=== PATIENT | male | born 1955 | race Caucasian/White ===

== ENCOUNTER → 2016-11-30 | Outpatient (CLI) | payer OTHER ==
[~2016-11-30] MED LIST: ASPI81TA28 PO; FLV1 PO; MULT-506 PO; PB15 PO
[2016-11-30 11:44] LABS: ALT/SGPT 44 U/L (12-78); AST/SGOT 19 U/L (15-37); BLOOD UREA NITROGEN 16 mg/dl (7-18); BUN/CREATININE RATIO 12.9 (10-20); CALCIUM 9.1 mg/dl (8.5-10.1); CARBON DIOXIDE 29 mmol/L (21-32); CHLORIDE 106 mmol/L (98-107); GLUCOSE 88 mg/dl (70-99); SODIUM 142 mmol/L (136-145)
[2016-11-30 11:46] LABS: ALB/GLOB RATIO 1.2 (0.9-2); ALKALINE PHOSPHATASE 74 U/L (45-117); CHOLESTEROL 166 mg/dl (0-200); CHOLESTEROL/HDL RATIO 3.4; HDL CHOLESTEROL 49 mg/dl; LDL CHOLESTEROL CALCULATED 101 mg/dl; TRIGLYCERIDES 81 mg/dl (0-150); VERY LOW DENSITY LIPOPROT CALC 16 mg/dl
== END | disposition home or self-care (01) ==
LOC: C.LAB 09:51
PROVIDERS: ATTEND Nurse Practitioner Family
DX: E78.00 Pure hypercholesterolemia, unspecified (principal)

== ENCOUNTER → 2017-07-08 | Outpatient (CLI) | payer OTHER ==
[2017-07-08 08:49] LABS: ALT/SGPT 49 U/L (12-78); BLOOD UREA NITROGEN 14 mg/dl (7-18); BUN/CREATININE RATIO 12.9 (10-20); CALCIUM 8.6 mg/dl (8.5-10.1); CARBON DIOXIDE 29 mmol/L (21-32); CHLORIDE 108 mmol/L (98-107); CHOLESTEROL 150 mg/dl (0-200); GLUCOSE 91 mg/dl (70-99); SODIUM 142 mmol/L (136-145)
[2017-07-08 08:52] LABS: ALB/GLOB RATIO 1.2 (0.9-2); ALKALINE PHOSPHATASE 67 U/L (45-117); AST/SGOT 24 U/L (15-37); CHOLESTEROL/HDL RATIO 3.3; HDL CHOLESTEROL 45 mg/dl; LDL CHOLESTEROL CALCULATED 95 mg/dl; TRIGLYCERIDES 52 mg/dl (0-150); VERY LOW DENSITY LIPOPROT CALC 10 mg/dl
== END | disposition home or self-care (01) ==
LOC: C.LAB 07:55
PROVIDERS: ATTEND Nurse Practitioner Family
DX: Z00.00 Encounter for general adult medical examination without abnormal findings (principal)

== ENCOUNTER 2025-05-15 10:41 | Inpatient (IN) ==
--- NOTE | 2025-05-15 11:20 | XRay Report ---
XR chest 1V portable CLINICAL HISTORY: Chest pain, nonspecific COMPARISON STUDY: 12/09/2024 FINDINGS: Heart size and pulmonary vasculature are normal. No consolidation or pleural effusion. No p neumothorax. Stable minimal scoliosis. IMPRESSION: No acute findings. ACT 112: Negative or not required by law. Electronically signed by: Jabier Naik M.D. 05/15/2025 11:19 AM
[2025-05-15 11:32] LABS: Hematocrit (blood only) 47.9 % (42.0-52.0); Hemoglobin 16.3 g/dl (14.0-18.0); Immature Granulocytes # (auto) 0.02 K/uL (0.01-0.20); Immature Granulocytes % (auto) 0.3 %; Mean Corpuscular Hemoglobin 30.8 pg (25.0-34.0); Mean Corpuscular Volume 90.5 fL (80.0-100.0); Platelet Count 249 K/uL (130-400); RDW Standard Deviation 42.2 fL (36.4-46.3); Red Blood Count 5.29 M/uL (4.70-6.10); White Blood Count 7.71 K/ul (4.8-10.8)
[2025-05-15 11:51] LABS: Alanine Aminotransferase 25.0 U/L (7-52); Albumin Globulin Ratio 1.5 (0.9-2); Alkaline Phosphatase 57.0 U/L (34-104); Anion Gap 7.0 (3-11); Bilirubin,Total 0.7 mg/dl (0.2-1.0); Blood Urea Nitrogen 17.0 mg/dl (6-23); Calcium 9.3 mg/dl (8.6-10.3); Carbon Dioxide 31.0 mmol/L (21-32); Chloride 101.0 mmol/L (98-107); Creatinine Clr Calc Pharmacy 61.8 ml/min; Globulin 2.8 gm/dl (2.5-4.0); Glucose 97.0 mg/dl (70-99(Fasting)); Lipase 27.0 U/L (11-82); Potassium 4.2 mmol/L (3.5-5.1); Sodium 139.0 mmol/L (136-145); Total Protein 7.1 gm/dl (6.0-8.3)
[2025-05-15] MEDS: ASPIRIN CHEW 324 MG PO STA (12:19)
[2025-05-15] MEDS ORDERED: ACETAMINOPHEN 325 MG TAB PO PRN (12:20)
--- NOTE | 2025-05-15 12:32 | Cardiology Consultation ---
Date of Consultation May 15, 2025 Assessment & Plan (1) Angina pectoris, crescendo: -The patient describes classic, crescendo, exertional angina pectoris. -Troponin elevated at 270. -Would not perform a stress test. -Cardiac catheterization this afternoon, discussed with Dr. Larios. (2) Benign essential hypertension: - Adequate control on current regimen. (3) Pure hypercholesterolemia: - Simvastatin will likely need to be changed to atorvastatin or rosuvastatin. History of Present Illness History of Present Illness Mr. Giraldo is a 61-year-old male who presented to the emergency room today with a chest pain syndrome. This consultation was ordered to assist in his cardiac management. The patient was in his usual state of health until approximately 6 months ago. He began to note substernal chest discomfort with exertion. This has become progressive and now happens with minimal physical activity. There is also associated shortness of breath and occasional diaphoresis. His symptoms resolve within several minutes of rest. He was seen by MAISHA Romano this morning with the above complaints. An EKG noted a poor R wave progression across into precordium, therefore, he was sent to the emergency room for further care. He has not experienced any symptoms at rest. He has never known of a cardiac event. He has never had a cardiac catheterization. A fasting lipid panel performed back in February noted poor control with an LDL cholesterol of 157. He is currently on simvastatin. His medication reviewed in detail. Past medical and surgical history 1. Hypertension 2. Hypercholesterolemia 3. Hypothyroidism 4. Allergic rhinitis 5. 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 Allergies Allergy/AdvReac Type Severity Reaction Status Date / Time losartan AdvReac Intermediate Cough Verified 05/15/25 08:55 Home Medications Medication Instructions Recorded Confirmed Type aspirin 81 mg tablet,delayed 81 mg PO QAM 12/26/22 05/15/25 History release wbwvnbgyvsi-[id number]-mqw C-Mn 500 1 cap PO QAM 12/26/22 05/15/25 History mg-400 mg capsule multivitamin 1 tab PO QAM 12/26/22 05/15/25 History levothyroxine 75 mcg tablet 75 mcg PO DAILY #30 tabs 02/24/25 05/15/25 Rx (Synthroid) simvastatin 10 mg tablet See Rx Instructions .Route 02/24/25 05/15/25 Rx .COMPLEX #90 tabs metoprolol succinate 50 mg 50 mg PO HS #90 tabs 03/19/25 05/15/25 Rx tablet,extended release 24 hr nifedipine 30 mg tablet,extended 30 mg PO DAILY #30 tabs 05/08/25 05/15/25 Rx release 24 hr hydrochlorothiazide 25 mg tablet 25 mg PO BID #180 tabs 05/15/25 05/15/25 Rx Patient History Medical History Colon cancer screening Osteoarthritis Surgical History S/P tendon repair History of colonoscopy Family History Father Diabetes Hyperlipidemia Heart disease Stage 4 chronic kidney disease due to diabetes mellitus Aortic aneurysm Congestive heart disease Mother Cerebral infarction Stroke Other No family history of adverse response to anesthesia Denies family history of Ovarian cancer Prostate cancer Myocardial infarction Breast cancer Colorectal cancer Social History Smoking Status: Never smoker Second Hand Exposure: No; Do You Dip or Chew Tobacco: No; Hx Alcohol Use: No Hx Substance Use: No Preferred Language: Swedish Communication Ability: Effective Visual Impairment: No Limitations Hearing Ability: Normal Speech Writer Required: No Beliefs That Will Affect Care: None marital status: Current Living Situation: Spouse current occupational status: 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 HEENT exam is negative. Neck reveals normal carotid upstrokes without bruits. Jugular venous pressure is flat at 90. There is no thyromegaly. Cardiovascular exam reveals a regular rhythm with a normal S1 and S2. No S3, S4, or murmurs are noted. Lungs are clear without rales, rhonchi, or wheezes. Abdomen is soft without bruits. Extremities reveal intact radial artery and posterior tibial pulses bilaterally. There is no peripheral edema. Results & Data Vital Signs (Past 12 Hours) Vital Signs Temp Pulse Pulse Resp BP BP Pulse Ox 05/15/25 11:38 95 05/15/25 11:38 70 16 131/78 95 05/15/25 11:32 82 05/15/25 10:47 36.7 C 74 18 126/81 96 O2 Del Method O2 Flow Rate 05/15/25 11:38 Room Air 0 05/15/25 11:38 Room Air 0 05/15/25 11:32 05/15/25 10:47 Room Air Diagnostic Findings High-sensitivity troponin elevated at 269.7. CBC and electrolytes are unremarkable. Medications Administered EKG notes sinus rhythm with poor R wave progression across anterior precordium. Chest x-ray shows no acute disease. PG Care Time/CCT Total # of Minutes Spent Total Time Spent with Patient: Total time spent is greater than 50% in coordination of care (as documented) at patient's floor/unit and/or counseling patient: Coding Level of Care Code 91624 INT INP/OBS CARE MIN Diagnoses Angina pectoris, crescendo I20.0 Benign essential hypertension I10 Pure hypercholesterolemia E78.00
--- NOTE | 2025-05-15 12:33 | Pre Anesthesia Assessment ---
Date of Service May 15, 2025 Pre Sedation Assessment Vital Signs Temp Pulse Pulse Resp BP BP Pulse Ox 05/15/25 11:38 95 05/15/25 11:38 70 16 131/78 95 05/15/25 11:32 82 05/15/25 10:47 98.1 F 74 18 126/81 96 O2 Del Method O2 Flow Rate 05/15/25 11:38 Room Air 0 05/15/25 11:38 Room Air 0 05/15/25 11:32 05/15/25 10:47 Room Air Cardiovascular + regular rate Respiratory + respiratory effort normal Pre-Sedation Airway Assessment Smoking Status: Never smoker Hx Sleep Apnea: No Hx Difficult Intubation: No Short, Thick Neck: No Thyromental Distance: > or= 3.5 Finger Breadths Oral Cavity: + Dental Abnormalities Mallampati Class: III ASA: ASA3 Procedure Planning Contraindications for Sedation: none Current Medications Reviewed: Yes Notes The planned sedation has been discussed with the patient. Informed Consent was obtained. I have identified the patient, determined the appropriateness of sedation and have assessed the patient immediately prior to the procedure. All medicine(s) and interventions are by my order.
[2025-05-15] MEDS: niCARdipine 2,000 MCG/20 ML SYR ONE (13:07)
[2025-05-15] MEDS: NITROGLYCERIN/D5W 100MCG/ML 20ML SYR ONE (13:07)
[2025-05-15] MEDS: MIDAZOLAM HCL 1 MG/ML 2ML VIAL ONE (13:32)
[2025-05-15] MEDS: HEPARIN (PORCINE) 1000 UNIT/ML 10 ML (CATH LAB USE ONLY) ONE (13:32)
[2025-05-15] MEDS: OPTIRAY 350 ONE (13:34)
--- NOTE | 2025-05-15 13:50 | Post Anesthesia Assessment ---
Date of Service May 15, 2025 Post Sedation Assessment Vital Signs Temp Pulse Pulse Resp BP BP Pulse Ox 05/15/25 12:45 98.2 F 73 18 138/84 95 05/15/25 12:21 70 16 128/76 99 05/15/25 11:38 95 05/15/25 11:38 70 16 131/78 95 05/15/25 11:32 82 05/15/25 10:47 98.1 F 74 18 126/81 96 O2 Del Method O2 Flow Rate 05/15/25 12:45 Room Air 05/15/25 12:21 Room Air 05/15/25 11:38 Room Air 0 05/15/25 11:38 Room Air 0 05/15/25 11:32 05/15/25 10:47 Room Air Recovery Score Activity: Moves 4 extremities Respiration: Deep Breath/Cough Circulation: +/-20% PreAnes Value Consciousness: Fully Awake Oxygen Saturation: O2 needed for >90% Discharge Sedation Level of Care: Fast Track Phase II Post Sedation Plan tiss
--- NOTE | 2025-05-15 14:23 | Emergency Department Note ---
Impression & Plan Non-ST elevation VT (NSTEMI), Chest pain, exertional, Shortness of breath ED Provider Note NAME: STEFAN LUNDBERG AGE: 69 SEX: M : 1955 ARRIVES VIA: Walk-In INFORMANT: Patient ED PROVIDER(S): Thaddeus Wilson DO CHIEF COMPLAINT: Chest pain HPI: Patient is a 69-year-old male who presents to the ER with a past medical history of hypertension for chest pain which has been coming and going for the past 6 months. Has been worsening in intensity and has associated shortness of breath with it. It only occurs with activity/exertion but has been occurring more frequently and with less exertion. He saw his PCP and they referred him in here for evaluation. Last time he had any chest pain was on Monday. He denies any headache or change in vision. No belly pain. No nausea, vomiting, or diarrhea. No dysuria, urgency, or frequency. No other exacerbating or remitting factors. ADDITIONAL HISTORY OBTAINED: Per HPI Chronic Medical/Social Conditions Affecting Care: Per HPI PAST MEDICAL HISTORY:See Below PAST SURGICAL HISTORY:See Below FAMILY HISTORY:See Below SOCIAL HISTORY:See Below HOME MEDICATIONS:See Below ALLERGIES:See Below VITALS:See Below PHYSICAL EXAMINATION: GENERAL: Sitting up in bed, alert, well appearing, well nourished, no distress, non-toxic EYE EXAM: normal conjunctiva. OROPHARYNX: mucous membranes are moist LUNGS: Clear to auscultation. Normal chest wall mechanics HEART: no murmurs, S1 normal and S2 normal ABDOMEN: abdomen soft, non-tender, normo-active bowel sounds, no masses, no rebound or guarding. UPPER EXTREMITIES: upper extremities are grossly normal. Radial pulses equal bilaterally LOWER EXTREMITIES: No pitting edema. Calves are equal bilaterally NEURO EXAM: Normal sensorium, cranial nerves II-XII grossly intact, normal speech, no gross weakness of arms, no gross weakness of legs. MEDICAL DECISION MAKING: Patient is a 69-year-old male who presents ER for exertional chest pain and shortness of breath with his last episode on Monday which has been getting worse over the past several months. IV was established and blood work was obtained. Labs show no significant leukocytosis or anemia. BMP along with LFTs bilirubin and lipase was unremarkable. Troponin was elevated at about 260. Was given aspirin. He has no pain currently. I discussed the case with Dr. Farnsworth from cardiology and he noted to evaluate the patient at bedside. He recommended no heparin at this time. Patient was updated at bedside and discussed case with the hospitalist for further evaluation management treatment. Consults/Care Managements Discussions: Per [facility] Triage Nursing notes reviewed. Limited review of prior medical records performed Vital Signs: reviewed and remarkable for no significant abnormalities Differential diagnosis: Cardiac ischemia, aortic dissection, pulmonary embolism, pneumothorax, pneumonia, pericarditis, myocarditis, esophageal rupture, GERD, cholecystitis, pancreatitis, musculoskeletal, as well as other pathologies. ER treatment provided: See below Diagnostics interpreted by me include EKG and cardiac monitoring as listed below: -Cardiac Monitoring: An order was placed for continuous cardiac monitoring. The monitor shows a rate of 70 with sinus rhythm. -ECG: Sinus rhythm rate of 69 Normal axis No PVCs T wave inversion in lead III QTc 430 -Laboratory studies:Interpreted by me as stated above in MDM and shown below. Imaging studies: Xrays: As interpreted by me: Portable AP upright 1 view of the chest shows no focal infiltrate CTs show: none Procedures:none Critical Care: None Past Med/Surg History Problem List (Updated 05/15/25 @ 14:23 by Thaddeus Wilson DO) Shortness of breath (Acute) Chest pain, exertional (Acute) Non-ST elevation VT (NSTEMI) (Acute) Angina pectoris, crescendo Hypothyroidism Benign essential hypertension (Chronic) Allergic rhinitis Pure hypercholesterolemia (Acute) Medical History Colon cancer screening Osteoarthritis Surgical History S/P tendon repair History of colonoscopy Family History Father Diabetes Hyperlipidemia Heart disease Stage 4 chronic kidney disease due to diabetes mellitus Aortic aneurysm Congestive heart disease Mother Cerebral infarction Stroke Other No family history of adverse response to anesthesia Denies family history of Ovarian cancer Prostate cancer Myocardial infarction Breast cancer Colorectal cancer Social History Smoking Status: Never smoker Second Hand Exposure: No; Do You Dip or Chew Tobacco: No; Hx Alcohol Use: No Hx Substance Use: No Preferred Language: Turkmen Communication Ability: Effective Visual Impairment: No Limitations Hearing Ability: Normal Custom Seamstress Required: No Beliefs That Will Affect Care: None marital status: Current Living Situation: Spouse current occupational status: retired 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 How many Children do You have: 2 Feels Safe at Home: Yes Childhood Exposure to Second-Hand Smoke: No Diet: regular caffeine: Yes during the past year weight has: remained stable Dental Care, Regularly: Yes Physical Activity Frequency: Does not Exercise Seatbelt Use: always Sunscreen Use: No Assistive Devices: Glasses Allergies Allergies Allergy/AdvReac Type Severity Reaction Status Date / Time losartan AdvReac Intermediate Cough Verified 05/15/25 08:55 Home Meds Home Medications Medication Instructions Recorded Confirmed aspirin 81 mg tablet,delayed 81 mg PO QAM 12/26/22 05/15/25 release utscqipaqwx-ojxwejcen-[id number] C-Mn 500 1 cap PO QAM 12/26/22 05/15/25 mg-400 mg capsule multivitamin 1 tab PO QAM 12/26/22 05/15/25 Previous Rx's Medication Instructions Recorded levothyroxine 75 mcg tablet 75 mcg PO DAILY #30 tabs 02/24/25 (Synthroid) simvastatin 10 mg tablet See Rx Instructions .Route 02/24/25 .COMPLEX #90 tabs metoprolol succinate 50 mg 50 mg PO HS #90 tabs 03/19/25 tablet,extended release 24 hr nifedipine 30 mg tablet,extended 30 mg PO DAILY #30 tabs 05/08/25 release 24 hr hydrochlorothiazide 25 mg tablet 25 mg PO BID #180 tabs 05/15/25 Results & Data (ED) Vital Signs Vital Signs - 24 hr 05/15/25 10:47 05/15/25 11:32 05/15/25 11:38 Temperature 36.7 C Temperature Source Temporal Artery Scan Pulse Rate 74 82 Pulse Rate [Finger] 70 Pulse Rhythm [Finger] Regular Pulse Strength [Finger] Normal Respiratory Rate 18 16 Respiratory Effort / Characteristics Non-Labored Spontaneous Non-Labored Respiratory Depth Normal Normal Respiratory Pattern Regular Blood Pressure 126/81 Blood Pressure [Right Arm] 131/78 Blood Pressure Mean 96 Blood Pressure Mean [Right Arm] 95 Blood Pressure Position Sitting Blood Pressure Position [Right Arm] Pulse Oximetry 96 95 Oxygen Delivery Method Room Air Room Air Oxygen Flow Rate 0 Sepsis Recent Fever Within 48 Hours No Sepsis New/Unexplained Change in Mental Status No Sepsis Action Taken by Nursing No Action Required 05/15/25 11:38 05/15/25 12:21 05/15/25 12:45 Temperature 36.8 C Temperature Source Oral Pulse Rate Pulse Rate [Finger] 70 73 Pulse Rhythm [Finger] Regular Pulse Strength [Finger] Normal Respiratory Rate 16 18 Respiratory Effort / Characteristics Non-Labored Non-Labored Spontaneous Respiratory Depth Normal Normal Respiratory Pattern Regular Regular Blood Pressure Blood Pressure [Right Arm] 128/76 138/84 Blood Pressure Mean Blood Pressure Mean [Right Arm] 93 102 Blood Pressure Position Blood Pressure Position [Right Arm] Pulse Oximetry 95 99 95 Oxygen Delivery Method Room Air Room Air Room Air Oxygen Flow Rate 0 Sepsis Recent Fever Within 48 Hours Sepsis New/Unexplained Change in Mental Status Sepsis Action Taken by Nursing 05/15/25 13:46 05/15/25 14:01 Temperature Temperature Source Pulse Rate Pulse Rate [Finger] 82 84 Pulse Rhythm [Finger] Regular Regular Pulse Strength [Finger] Normal Normal Respiratory Rate 15 15 Respiratory Effort / Characteristics Non-Labored Non-Labored Respiratory Depth Normal Normal Respiratory Pattern Regular Regular Blood Pressure Blood Pressure [Right Arm] 129/84 108/73 Blood Pressure Mean Blood Pressure Mean [Right Arm] 99 84 Blood Pressure Position Blood Pressure Position [Right Arm] Lying Lying Pulse Oximetry 97 97 Oxygen Delivery Method Room Air Room Air Oxygen Flow Rate Sepsis Recent Fever Within 48 Hours Sepsis New/Unexplained Change in Mental Status Sepsis Action Taken by Nursing Laboratory Data 05/15/25 11:06 05/15/25 11:06 Lab Results 05/15/25 Range/Units 11:06 WBC 7.71 (4.8-10.8) K/ul RBC 5.29 (4.70-6.10) M/uL Hgb 16.3 (14.0-18.0) g/dl Hct 47.9 (42.0-52.0) % MCV 90.5 (80.0-100.0) fL MCH 30.8 (25.0-34.0) pg MCHC 34.0 (32.0-36.0) g/dL RDW Std Deviation 42.2 (36.4-46.3) fL RDW Coeff of Atif 12.8 (11.5-14.5) % Plt Count 249 (130-400) K/uL MPV 10.5 (9.4-12.4) fL Immature Gran % (Auto) 0.3 % Neut % (Auto) 63.0 % Lymph % (Auto) 26.1 % Taylor % (Auto) 7.9 % Eos % (Auto) 2.3 % Baso % (Auto) 0.4 % Neut # (Auto) 4.86 (1.40-6.50) K/uL Lymph # (Auto) 2.01 (1.20-3.40) K/uL Taylor # (Auto) 0.61 H (0.11-0.59) K/uL Eos # (Auto) 0.18 (0.00-0.50) K/uL Baso # (Auto) 0.03 (0.00-0.20) K/uL Immature Gran # (Auto) 0.02 (0.01-0.20) K/uL Sodium 139 (136-145) mmol/L Potassium 4.2 (3.5-5.1) mmol/L Chloride 101 (98-107) mmol/L Carbon Dioxide 31 (21-32) mmol/L Anion Gap 7 (3-11) BUN 17 (6-23) mg/dl Creatinine 1.18 (0.6-1.4) mg/dl Est Cr Clr Drug Dosing 61.8 ml/min eGFR 67.21 BUN/Creatinine Ratio 14.4 (10-20) Glucose 97 (70-99(Fasting)) mg/dl Calcium 9.3 (8.6-10.3) mg/dl Total Bilirubin 0.7 (0.2-1.0) mg/dl AST 25 (13-39) U/L ALT 25 (7-52) U/L Alkaline Phosphatase 57 (34-104) U/L Troponin I High Sens 269.7 H* (0-20) pg/ml Total Protein 7.1 (6.0-8.3) gm/dl Albumin 4.3 (3.4-5.0) gm/dl Globulin 2.8 (2.5-4.0) gm/dl Albumin/Globulin Ratio 1.5 (0.9-2) Lipase 27 (11-82) U/L Administered Medications Discontinued Medications Aspirin (Aspirin Chew 324 Mg) 324 mg PO NOW STA Stop: 05/15/25 12:06 Last Admin: 05/15/25 12:19 Dose: 324 mg Documented By: AZALEA Fentanyl Citrate (Fentanyl Citrate Pf 100 Mcg/2 Ml Vial) Confirm Administered Dose 100 mcg .ROUTE .STK-MED ONE Stop: 05/15/25 12:57 Last Increment: 05/15/25 13:32 Dose: 50 mcg Documented By: AGUSTIN Heparin Sodium (Porcine) (Heparin (Porcine) 1000 Unit/Ml 10 Ml (Cap Jewel Plate Assembler Use Only)) Confirm Administered Dose 10,000 units .ROUTE .STK-MED ONE Stop: 05/15/25 12:57 Last Admin: 05/15/25 13:32 Dose: 5,000 units Documented By: AGUSTIN Heparin Sodium/Sodium Chloride (Heparin In Nss Infusion 1000 Unit/500 Ml (2 U/Ml) Bag) Confirm Administered Dose 3,000 units IV .STK-MED ONE Stop: 05/15/25 12:57 Last Admin: 05/15/25 13:07 Dose: 3,000 units Documented By: AGUSTIN Ioversol (Optiray 350) Confirm Administered Dose 1 ml .ROUTE .STK-MED ONE Stop: 05/15/25 12:57 Last Admin: 05/15/25 13:34 Dose: 45 ml Documented By: AGUSTIN Midazolam HCl (Midazolam Hcl 1 Mg/Ml 2ml Vial) Confirm Administered Dose 2 mg .ROUTE .STK-MED ONE Stop: 05/15/25 12:56 Last Increment: 05/15/25 13:32 Dose: 1 mg Documented By: AGUSTIN Nicardipine HCl (Nicardipine 2,000 Mcg/20 Ml Syr) Confirm Administered Dose 2,000 mcg .ROUTE .STK-MED ONE Stop: 05/15/25 12:57 Last Admin: 05/15/25 13:07 Dose: 2,000 mcg Documented By: AGUSTIN Nitroglycerin/Dextrose (Nitroglycerin/D5w 100mcg/Ml 20ml Syr) Confirm Administered Dose 2,000 mcg .ROUTE .STK-MED ONE Stop: 05/15/25 12:57 Last Admin: 05/15/25 13:07 Dose: 2,000 mcg Documented By: AGUSTIN Imaging Data Radiologist's Impression: Chest X-Ray 05/15/25 10:52 XR chest 1V portable CLINICAL HISTORY: Chest pain, nonspecific COMPARISON STUDY: 12/09/2024 FINDINGS: Heart size and pulmonary vasculature are normal. No consolidation or pleural effusion. No pneumothorax. Stable minimal scoliosis. IMPRESSION: No acute findings. ACT 112: Negative or not required by law. Electronically signed by: Jabier Naik M.D. 05/15/2025 11:19 AM Discharge Plan Visit Data Chief Complaint: Abnormal Labs/Diagnostic Testing Stated Complaint: REF BY DOC, ABNORMAL EKG ED Provider: Thaddeus Wilson Discharge Problem: Non-ST elevation VT (NSTEMI), Chest pain, exertional, Shortness of breath Patient Disposition: Admitted As Inpatient Condition: Fair Discharge Instructions Interventions: ED Discharge Assessment Last Done: 05/15/25 12:38
--- NOTE | 2025-05-15 14:25 | Cardiac Catheterization ---
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 Cardiac Status Clinical evaluation leading to the procedure CAD Presenation: Non STEMI Diagnostic Physicians Name: Vic Larios MD Closure Device Recommendations: CABG Cardiac Cath Procedure Full Procedure Date May 15, 2025 Pre-Procedure Diagnosis Pre-Procedure Diagnosis: Non STEMI AUC Score AUC Score: 8 Post-Procedure Diagnosis Post-Procedure Diagnosis: Severe CAD and Normal Intracardiac Pressures Procedure(s) Performed Procedure(s) Performed: Coronary Angiography, Left Heart Cath and Ultrasound Guided Vascular Access [employer] Officer Vic Larios MD Curriculum Assistant Principal(s) Abhijit Estimated Blood Loss Estimated Blood Loss: 5 Medication(s) Medication(s): Fentanyl, Heparin, Lidocaine 1%, Nicardipine, Nitroglycerin and Versed Summary of Findings Indication: NSTEMI Access: 6 Fr slender right radial artery under ultrasound guidance Catheters: [place] Findings: LM -normal caliber, no significant disease LAD -medium caliber, calcified, 90% proximal stenosis just before bifurcation with D1 with poststenotic ectasia. Mid LAD subtotally occluded. Remainder of mid to distal LAD appears free of significant disease but with NORA II flow as wraps around apex. Bifurcating D1 with angulated takeoff 40% proximal stenosis. Circumflex -medium caliber, 70% proximal, 95% mid stenosis. Medium OM 2, left PLB without significant disease. RCA -small, dominant, diffuse severe disease with subtotal mid occlusion and NORA I-II flow in distal RCA. Small PDA/PLB's fill primarily retrograde via [id number] collaterals. LVEDP -13 Arterial Closure: TR band Summary: 1. Severe multivessel coronary artery disease - 90% proximal LAD prior to ectatic bifurcation with D1. Subtotal mid LAD occlusion with NORA II distal flow around apex. 70% proximal, 95% mid circumflex Small RCA with severe diffuse disease, subtotal mid occlusion and left-to- right collaterals. 2. Normal intracardiac filling pressure Recommendations: Recommend transfer to tertiary center for consideration of CABG. Continue IV heparin infusion while awaiting transfer. 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 Any exceptions are noted below. [facility] Card Cath Procedure Codes Cardiac Catheterization Procedure 1: Cardiovascular Cath Procedures: 76498 Coronaries and LHC (+/-LV) Therapeutic Services & Ancillary Procedure 1: Cardiovascular Tx and Anc Procedures: 90886 Ultrasonic Guidance Vascular Access Moderate Sedation Procedure 1: Sedation/Anesthesia: 85552 Mod Sedation by the same physician;Init15 Min Child Age 5 & Up PG Care Time/CCT Total # of Minutes Spent Total Time Spent with Patient: Total time spent is greater than 50% in coordination of care (as documented) at patient's floor/unit and/or counseling patient:
--- NOTE | 2025-05-15 14:38 | Electrocardiogram Report ---
Test Reason : Blood Pressure : */* mmHG Vent. Rate : 69 BPM Atrial Rate : 69 BPM P-R Int : 188 ms QRS Dur : 98 ms QT Int : 402 ms P-R-T Axes : 62 39 36 degrees QTcB Int : 430 ms Normal sinus rhythm Poor R wave progression, consider anterior IN vs. lead placement vs. LVH Abnormal ECG Confirmed by Martinez Farnsworth ([id number]) on 05/15/2025 2:38:20 PM Referred By: Abdullahi Cordon Confirmed By: Martinez Farnsworth
--- NOTE | 2025-05-15 14:47 | History & Physical Report ---
Date of Service May 15, 2025 Assessment & Plan (1) Non-ST elevation LA (NSTEMI): Plan: -Cath shows severe multivessel coronary artery disease - 90% proximal LAD prior to ectatic bifurcation with D1. Subtotal mid LAD occlusion with NORA II distal flow around apex. 70% proximal, 95% mid circumflex Small RCA with severe diffuse disease, subtotal mid occlusion and [id number] collaterals. - Heparin drip -asa, metoprolol, zocor -Cardiology recommending transfer to [facility] for CABG -awaiting transfer (2) Benign essential hypertension: Plan: -metoprolol (3) Hypothyroidism: Plan: -levothyroxine (4) Pure hypercholesterolemia: Plan: -zocor History of Present Illness Chief Complaint: Chest pain Primary Care Provider: Abdullahi Cordon, HUMZA, MAISHA Pt is a 61 y/o male with pmh of HTN, HLD, who presents with chest pain that has been progressive over the past 6 months along with associated dyspnea. Pt's symptoms worsen with physical activity. He was seen by his PCP office and was noted to have EKG with concerning changes. He was told to go to the ER and was found to have EKG which showed no ST-T changes, but poor R wave progression in precordial leads. In the ER his first set of troponin was 248. Cardiology was consulted and recommended taking the patient straight to the cath lab radiology technician. He was given ASA 325 and his vital signs were stable. Allergies Allergy/AdvReac Type Severity Reaction Status Date / Time losartan AdvReac Intermediate Cough Verified 05/15/25 08:55 Home Medications Medication Instructions Recorded Confirmed Type aspirin 81 mg tablet,delayed 81 mg PO QAM 12/26/22 05/15/25 History release [id number]-[id number]-[id number] C-Mn 500 1 cap PO QAM 12/26/22 05/15/25 History mg-400 mg capsule multivitamin 1 tab PO QAM 12/26/22 05/15/25 History levothyroxine 75 mcg tablet 75 mcg PO DAILY #30 tabs 02/24/25 05/15/25 Rx (Synthroid) simvastatin 10 mg tablet See Rx Instructions .Route 02/24/25 05/15/25 Rx .COMPLEX #90 tabs metoprolol succinate 50 mg 50 mg PO HS #90 tabs 03/19/25 05/15/25 Rx tablet,extended release 24 hr nifedipine 30 mg tablet,extended 30 mg PO DAILY #30 tabs 05/08/25 05/15/25 Rx release 24 hr hydrochlorothiazide 25 mg tablet 25 mg PO BID #180 tabs 05/15/25 05/15/25 Rx Past Med/Surg History Problem List (Updated 05/15/25 @ 14:23 by Thaddeus Wilson DO) Shortness of breath (Acute) Chest pain, exertional (Acute) Non-ST elevation LA (NSTEMI) (Acute) Angina pectoris, crescendo Hypothyroidism Benign essential hypertension (Chronic) Allergic rhinitis Pure hypercholesterolemia (Acute) Medical History Colon cancer screening Osteoarthritis Surgical History S/P tendon repair History of colonoscopy Family History Father Diabetes Hyperlipidemia Heart disease Stage 4 chronic kidney disease due to diabetes mellitus Aortic aneurysm Congestive heart disease Mother Cerebral infarction Stroke Other No family history of adverse response to anesthesia Denies family history of Ovarian cancer Prostate cancer Myocardial infarction Breast cancer Colorectal cancer Social History Smoking Status: Never smoker Second Hand Exposure: No; Do You Dip or Chew Tobacco: No; Hx Alcohol Use: No Hx Substance Use: No Preferred Language: Luxembourgish Communication Ability: Effective Visual Impairment: No Limitations Hearing Ability: Normal [employer]fuels Processing Technician Required: No Beliefs That Will Affect Care: None marital status: Current Living Situation: Spouse 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 HENT: Negative for neck pain/stiffness, headache, congestion, sore throat, swelling. EYES: Negative for discharge/pain or vision changes. RESP: Negative for cough/hemoptysis and shortness of breath. CV: Negative chest pain, difficulty breathing, palpitations. ABD: Negative pain, nausea, vomiting. : Negative increase frequency, dysuria, blood in urine or stool. MUSC: Negative for muscle aches, edema. SKIN: Negative rash, lesions/sores. NEURO: Negative headache, dizziness, weakness. Physical Exam Physical Exam: GENERAL APPEARANCE NAD, activity normal for age, well developed/ well nourished, no cyanosis, pallor, or diaphoresis. EYES lids/conjunctiva normal. EARS/NOSE/THROAT Mucous membranes moist, nares normal, lips/teeth normal uvula midline without oral pharyngeal erythema, exudate or swelling TMs normal bilaterally. No lymphangitis/lymphedema. HEAD/NECK normocephalic atraumatic, no facial trauma, neck is supple. RESPIRATORY respiratory effort normal, speaks in full sentences, no tripod position, no accessory muscle use. Lungs clear to auscultation without rhonchi, wheezes, rales CARDIAC Regular rate and rhythm, no edema. ABDOMINAL Soft, ND/NT. No evidence of fluid wave. No pulsatile masses on exam, rebound tenderness, Mccullough sign or pain over Mcburney's point. MUSCLES/EXTREMITIES No abnormal range of motion, no swelling. SKIN Warm, pink and dry. No rashes, dermatoses, petechiae or lesions. NEUROLOGICAL Speech is clear and appropriate. Normal level of consciousness. Gait and coordination are normal. 5/5 strength in all extremities. PSYCH Normal mood and affect. Judgement/competence is appropriate Results & Data Results & Data Vital Signs (Past 12 Hours) Vital Signs Temp Pulse Pulse Resp BP BP Pulse Ox 05/15/25 14:16 62 15 124/71 98 05/15/25 14:01 84 15 108/73 97 05/15/25 13:46 82 15 129/84 97 05/15/25 12:45 36.8 C 73 18 138/84 95 05/15/25 12:21 70 16 128/76 99 05/15/25 11:38 95 05/15/25 11:38 70 16 131/78 95 05/15/25 11:32 82 05/15/25 10:47 36.7 C 74 18 126/81 96 O2 Del Method O2 Flow Rate 05/15/25 14:16 Room Air 05/15/25 14:01 Room Air 05/15/25 13:46 Room Air 05/15/25 12:45 Room Air 05/15/25 12:21 Room Air 05/15/25 11:38 Room Air 0 05/15/25 11:38 Room Air 0 05/15/25 11:32 05/15/25 10:47 Room Air PG Care Time/CCT Total # of Minutes Spent Total Time Spent with Patient: Total time spent is greater than 50% in coordination of care (as documented) at patient's floor/unit and/or counseling patient: Coding Level of Care Code 57495 INT INP/OBS CARE 2/55MIN Diagnoses Non-ST elevation LA (NSTEMI) I21.4 Benign essential hypertension I10 Hypothyroidism E03.9 Pure hypercholesterolemia E78.00
[2025-05-15 15:11] VITALS: RESP 18
--- NOTE | 2025-05-15 15:32 | XCELERA ---
[id number]
[2025-05-15] MEDS: HEPARIN 25000 UNIT/500 ML D5W IV ONE (16:18)
[2025-05-15] MEDS: Heparin IV Adult Wt-Based Low-Dose *NO* INITIAL Bolus Protocol IV STA (16:19)
[2025-05-15] MEDS: HEPARIN 25000 UNIT/500 ML D5W 25,000 UNITS/500 ML BAG IV SCH (19:10)
[2025-05-15 20:53] VITALS: BP 128/74; TEMP 98.1; O2SAT 94
[2025-05-15] MEDS: METOPROLOL SUCC 50MG EXT REL TAB PO SCH (20:57)
[2025-05-15] MEDS: hydroCHLOROthiazide 25 MG TAB PO SCH (20:57)
[2025-05-15] MEDS: SIMVASTATIN 40 MG TAB PO SCH (20:58)
[2025-05-15 23:07] VITALS: PULSE 63
[2025-05-16] MEDS ORDERED: LEVOTHYROXINE SODIUM 75 MCG TABLET PO SCH (06:30)
--- NOTE | 2025-05-16 07:26 | Discharge Summary ---
Discharge Summary Date of Service May 16, 2025 Principal Dx & Hospital Course #1 = Principal Diagnosis (1) Non-ST elevation SD (NSTEMI): -Cath shows severe multivessel coronary artery disease - 90% proximal LAD prior to ectatic bifurcation with D1. Subtotal mid LAD occlusion with NORA II distal flow around apex. 70% proximal, 95% mid circumflex Small RCA with severe diffuse disease, subtotal mid occlusion and bhqn-ej-fgxev collaterals. - Heparin drip -asa, metoprolol, zocor -Cardiology recommending transfer to [facility] for CABG -awaiting transfer (2) Benign essential hypertension: -metoprolol (3) Hypothyroidism: -levothyroxine (4) Pure hypercholesterolemia: -zocor Admission HPI Per Admitting Provider Pt is a 61 y/o male with pmh of HTN, HLD, who presents with chest pain that has been progressive over the past 6 months along with associated dyspnea. Pt's symptoms worsen with physical activity. He was seen by his PCP office and was noted to have EKG with concerning changes. He was told to go to the ER and was found to have EKG which showed no ST-T changes, but poor R wave progression in precordial leads. In the ER his first set of troponin was 248. Cardiology was consulted and recommended taking the patient straight to the director of laboratory operations. He was given ASA 325 and his vital signs were stable. Discharge Exam GENERAL APPEARANCE NAD, activity normal for age, well developed/ well nourished, no cyanosis, pallor, or diaphoresis. EYES lids/conjunctiva normal. EARS/NOSE/THROAT Mucous membranes moist, nares normal, lips/teeth normal uvula midline without oral pharyngeal erythema, exudate or swelling TMs normal bilaterally. No lymphangitis/lymphedema. HEAD/NECK normocephalic atraumatic, no facial trauma, neck is supple. RESPIRATORY respiratory effort normal, speaks in full sentences, no tripod position, no accessory muscle use. Lungs clear to auscultation without rhonchi, wheezes, rales CARDIAC Regular rate and rhythm, no edema. ABDOMINAL Soft, ND/NT. No evidence of fluid wave. No pulsatile masses on exam, rebound tenderness, Mccullough sign or pain over Mcburney's point. MUSCLES/EXTREMITIES No abnormal range of motion, no swelling. SKIN Warm, pink and dry. No rashes, dermatoses, petechiae or lesions. NEUROLOGICAL Speech is clear and appropriate. Normal level of consciousness. Gait and coordination are normal. 5/5 strength in all extremities. PSYCH Normal mood and affect. Judgement/competence is appropriate Discharge Plan Discharge Items Patient Disposition: Transfer Acute Care Hospital Reason For Visit: NSTEMI Discharge Diagnosis: multivessle CAD Condition on Discharge: Fair Activity: Resume your previous activity Non-emergency contact: Primary Care Provider Call non-emergency contact if: you have any medication questions Follow-up/Referrals: Abdullahi Cordon III, MAISHA [Primary Care Provider] - Diet: Regular Addtl Attending Provider Instructions: F/U with Dr. Jackson Stand-Alone Forms: My [facility] Skilled Items Patient informed of condition?: No DNR: No Discharge Level of Care: Other Communicable Disease: No Discharge Prognosis: Stable Lines: Peripheral IV Urinary Catheter: No Medications and DC Order Prescriptions: Continued metoprolol succinate 50 mg tablet extended release 24 hr 50 mg PO HS Qty: 90 3RF nifedipine 30 mg tablet extended release 24hr 30 mg PO DAILY Qty: 30 2RF levothyroxine [Synthroid] 75 mcg tablet 75 mcg PO DAILY Qty: 30 2RF simvastatin 10 mg tablet See Rx Instructions .ROUTE .COMPLEX Qty: 90 1RF Dose Instruction: TAKE 1 TABLET BY MOUTH ONCE DAILY IN THE EVENING Rx Instructions: TAKE 1 TABLET BY MOUTH ONCE DAILY IN THE EVENING hydrochlorothiazide 25 mg tablet 25 mg PO BID Qty: 180 1RF multivitamin Tablet 1 tab PO QAM Patient Comments: 05/15- otc unable to verify aspirin 81 mg Tablet,Delayed Release (/Ec) 81 mg PO QAM Patient Comments: 05/15- otc unable to verify pvvgmkbsmmy-mjliftoqh-lxy C-Mn 500-400 mg Capsule 1 cap PO QAM Patient Comments: 05/15- otc unable to verify Discharge Orders: Discharge Order (Routine); Ordered 05/15/25 Ordered By: Zeyad Wilhelm Admission Data Admit Date/Time: 05/15/25 14:34 Attending Provider: Zeyad Wilhelm Admit Provider: Zeyad Wilhelm Primary Care Provider: Abdullahi Cordon III Other Providers: Zeyad Wilhelm; Martinez Farnsworth Other Interventions: Discharge Summary Assessment (RN) Last Done: 05/15/25 18:30 Hospital Stay Data Consultations 05/15/25 12:05 ED Decision to Admit Stat 05/15/25 12:20 Consult Cardiology Routine 05/15/25 16:56 Burn CD for patient Stat Procedures Performed Operation Date: 05/15/25 13:00 Actual Procedures p Cineradiography w/Routine Exam - Vic Larios MD p Cath, Left with Cors and Vent - Vic Larios MD Diagnostic Imagining Performed 05/15/25 12:27 CL Cath Imgs for PACS use only Stat Discharge Instructions Given to Patient (Per Discharging Provider) F/U with Dr. Jackson Total Time Total Time Spent Total Time Spent (In Minutes): 50 Coding Level of Care Code 28295 INP/OBS DISCH >30 MIN Diagnoses Non-ST elevation SD (NSTEMI) I21.4 Benign essential hypertension I10 Hypothyroidism E03.9 Pure hypercholesterolemia E78.00
[2025-05-16] MEDS ORDERED: NON-FORMULARY MEDICATION (Glucosamine-Chondroit-Vit C-Mn 500-400 mg Capsule) PO SCH (09:00)
[2025-05-16] MEDS ORDERED: NIFEdipine EXTENDED REL 30 MG TABCR PO SCH (09:00)
[2025-05-16] MEDS ORDERED: MULTIVITAMIN TAB PO SCH (09:00)
[2025-05-16] MEDS ORDERED: ASPIRIN 81 MG ECTAB PO SCH (09:00)
== END 2025-05-15 23:26 | disposition short-term general hospital (02) | DRG 282 ==
LOC: ED 10:41 → CC 12:38 → 4W 14:34 → SUATTDRO 14:34